=== PATIENT | female | born 1990 | race Caucasian/White ===

== ENCOUNTER 2024-07-07 17:41 | Emergency (ER) | payer OTHER, MEDICAID, SELFPAY ==
[2024-07-07 18:07] VITALS: BP 129/77; PULSE 74; RESP 18; TEMP 36.1; O2SAT 100
--- NOTE | 2024-07-07 19:15 | PC.NURSE ---
This RN to bedside to assist with IV attempt. Day RN reports pt has previous sticks and may need Ultra Sound IV. This RN able to obtain a 22g sliv in top of left hand without ultrasound. Unable to collect blood. [place] notified.
[2024-07-07 19:44] LABS: Basophils Percent Auto 0.2 % (0.2-1.2); Hematocrit 41.7 % (37.0-47.0); Hemoglobin 13.9 g/dL (12.0-15.0); Immature Granulocyte Absolute 0.06 K/mm3 (0.00-0.031); Immature Granulocyte Percent A 0.5 % (0-0.5); Lymphocytes Absolute Auto 0.54 K/mm3 (0.9-3.2); Lymphocytes Percent Auto 4.3 % (18.3-44.2); Mean Corpuscular HGB Conc 33.3 g/dl (32-36); Mean Corpuscular Hemoglobin 30.8 pg (26-34); Mean Corpuscular Volume 92.5 fl (80-100); Mean Platelet Volume 9.6 fl (7.4-10.4); Monocytes Absolute Auto 0.2 K/mm3 (0.1-0.6); Monocytes Percent Auto 1.8 % (2.6-8.5); Neutrophils Absolute Auto 11.8 K/mm3 (1.3-6.7); Neutrophils Percent Auto 93.2 % (45.5-73.1); Platelet Count Result 326 k/mm3 (150-375); Red Blood Count 4.51 M/mm3 (4.2-5.4); Red Cell Distribution Width 12.7 % (11.5-14.5); White Blood Count 12.7 K/mm3 (4.5-10.0)
[2024-07-07] MEDS: LACTATED RINGERS 1,000 ML 999 ML IV CONT (19:45)
[2024-07-07] MEDS: METOCLOPRAMIDE HCL INJ 10 MG/2 ML VIAL IV PUSH (19:45)
[2024-07-07] MEDS: diphenhydrAMINE HCl INJ 50 MG/ML VIAL IV PUSH (19:45)
[2024-07-07] MEDS: ONDANSETRON HCL ODT 4 MG TABLET PO (19:45)
[2024-07-07] MEDS: SODIUM CHLORIDE 0.9% IV 200 ML 1000 ML (19:46)
[2024-07-07 19:53] LABS: Alanine Aminotransferase 25 U/L (6-35); Albumin Level 5.2 g/dL (3.5-5.1); Alkaline Phosphatase 53 U/L (38-126); Anion Gap 17 mmol/L (4-12); Aspartate Amino Transferase 37 U/L (14-36); Bilirubin,Total 0.7 mg/dL (0.2-1.3); Blood Urea Nitrogen 16 mg/dL (7-17); Carbon Dioxide 20 mmol/L (22-30); Chloride 104 mmol/L (98-107); Estimated CRCL calculation 73 ml/min; Estimated Glomerular Filt Rate > 60; Glucose 146 mg/dL (65-110); Lipase 31 U/L (23-300); Sodium 141 mmol/L (137-145)
--- OUTSIDE RECORDS SUMMARY | 2024-07-07 20:56 | XMS_ITS | Patient Health Record ---
Author Organization [facility] Syste SRINIVAS haque Address [address] [place] [phone] Support Name Relationship Address Phone TONE MACHADO Guarantor Unknown [phone] Allergies No Known Allergies Reason For Referral No Information Medications Medication SIG (Take, Route, Frequency, Duration) Notes Start Date End Date Status Atomoxetine HCl 40 MG 1 capsule in the m orning for 7 days, continue with 2 capsules Orally Once a day for 30 day(s) 07/14/2021 Not-Taking hydrOXYzine HCl 25 MG 1 tablet as needed Orally Once a day for 30 day(s) 07/28/2021 Active ALPRAZolam 0.25 MG 1 tablet Orally PRN for anxiety for 30 days 08/11/2021 Active Social History Tobacco Use: Social History Observation Description Date Details (start date - stop date) Former Smoker NA - NA TOBACCO USE/SMOKING: Question Answer Notes Patient is a: former smoker Alcohol Question Answer Notes Did you have a drink containing alcohol in the p ast year? No Interpretation Negative Problems Problem Type SNOMED Code ICD Code Onset Dates Problem Status W/U Status Risk Notes Problem Attention deficit hyperactivity disorder (014968897) Attention-deficit hyperactivity disorder, unspecified type (F90.9) Active confirmed Problem Anxiety disorder (279295144) Anxiety disorder, unspecified (F41.9) Active confirmed Plan Of Treatment Pending Test Test Name Order Date T4 and TSH 07/14/2021 CBC 07/14/2021 LIPID PANEL 07/14/2021 URINALYSIS 07/14/2021 (DO NOT USE) Drug Monitoring Panel 1- Qu est 08/11/2021 Electrocardiogram (EKG) 07/14/2021 Drug Profile, Ur, 9 [facility]- [facility] Test Code [id number] 07/14/2021 [id number] 07/14/2021 Insurance Providers Payer Name Payer Address Payer Phone Subscriber Number Group Number Insured Name Patient Relationship to Insured Coverage Start Date Coverage End Date [employer] [address] [place] [phone] [id number] TONE MACHADO Self - patient is the insured 1 [employer] [address] [place] [phone] [id number] TONE MACHADO Self - patient is the insured Medical (General) History Surgical History Surgery Date(Month/Year) Hospitalization History Reason Date(Month/Year) 2018 / complications 2020
--- OUTSIDE RECORDS SUMMARY | 2024-07-07 20:56 | XMS_ITS | Patient Health Record ---
Author Organization [facility] Billing Info Address [address] [place], [place] [id number] Care Team Providers Care Plating Machine Operator Name Role Phone Nohemi Santiago Primary Care Provider Rosa Maria ma LOUDAVIDH Unavailable [phone] Reason For Referral No Information Medications Medication SIG (Take, Route, Fr equency, Duration) Notes Start Date End Date Status Diclegis 10-10 MG 2 tablets at bedtime on an empty stomach Orally Once a day for 30 day(s) 11/13/2017 Active Social History Tobacco Use: Social History Observation Description Date Details (start date - stop date) Never Smoker NA - NA Tobacco Status: Question Answer Notes Patient is a never smoker Plan Of Treatment Future Test Test Name Order Date US-TRANSVAGINAL, NON-OBSTETRIC ([id number]) I H 11/13/2017 Insurance Providers Payer Name Payer Address Payer Phone Subscriber Number Group Number Insured Name Patient Relationship to Insured Coverage Start Date Coverage End Date [facility] [address] [place], [place] [id number] Gertrude Jamesily Self - patient is the insured 7 8 Medical (General) History Surgical History Surgery Date(Month/Year)
[2024-07-07 21:49] LABS: BEDSIDEPREGUCG Negative (Negative)
[2024-07-07 21:55] LABS: Add Urine Microscopic? YES; Appearance Urine Cloudy (Clear); Bacteria Urine None Seen /hpf; Bilirubin Urine Negative (Negative); Blood Urine 2+ (Negative); Color Urine Yellow (Yellow); Glucose Urine UA Negative (Negative); Ketones Urine 4+ mg/dL (Negative); Leukocyte Esterase Ur Negative LEU/UL (Negative); Nitrate Urine Negative (Negative); Non Pathogenic Casts 0-2; Protein Urine 1+ mg/dL (Negative); Squamous Epithelial Cell Urine Occasional /hpf (Few); Urobilinogen Urine 0.2 mg/dL (<2.0); WBC Urine 0-5 /hpf (0-3); pH Urine 5.5 (5.0-9.0)
[2024-07-07 22:48] VITALS: BP 138/84; PULSE 102; RESP 15; O2SAT 99
--- NOTE | 2024-07-08 00:14 | ED_ITS ---
HPI - Nausea/Vomiting/Diarrhea General Chief complaint: Nausea/Vomiting/Diarrhea Stated complaint: n/v Time Seen by Provider: 07/07/24 18:57 History of Present Illness HPI Narrative: Patient presenting here with nausea and vomiting, this happens occasionally and when it does, Benadryl works quite well for her. Requesting IV Benadryl; no significant abdominal pain, just some cramping when she throws up. Related Data Allergies Allergy/AdvReac Type Severity Reaction Status Date / Time No Known Allergies Allergy Verified 07/07/24 17:44 Review of Systems 2 Review of Systems: All systems reviewed & are unremarkable except as noted in HPI and below Exam 2 Narrative: EXAMINATION OF ORGAN SYSTEMS/BODY AREAS: Constitutional: Vital signs per nursing GENERAL: Appears slightly uncomfortable, holding emesis bag HEAD: Normal with no signs of head trauma. EYES: EOMI, conjunctiva normal ENT: Hearing grossly intact LUNGS: Nonlabored breathing. HEART: [Regular rate and rhythm] ABD: [Soft], [nontender to palpation] EXT: Normal range of motion SKIN: [No rashes or lesions.] NEURO: [Alert and oriented x 3. No gross focal sensory or strength deficits.] PSYCH: Normal affect Course Vital Signs Vital signs: Vital Signs Temperature 96.9 F L 07/07/24 18:07 Pulse Rate 74 07/07/24 18:07 Respiratory Rate 18 07/07/24 18:07 Blood Pressure 129/77 07/07/24 18:07 Pulse Oximetry 100 07/07/24 18:07 Temperature 96.9 F L 07/07/24 18:07 Pulse Rate 102 H 07/07/24 22:48 Respiratory Rate 15 07/07/24 22:48 Blood Pressure 138/84 07/07/24 22:48 Pulse Oximetry 99 07/07/24 22:48 MDM - Nausea/Vomiting/Diarrhea MDM Narrative Medical decision making narrative: Patient presents here with nausea vomiting, no significant abdominal pain. On exam he she appears slightly uncomfortable, holding emesis bag, abdomen soft nontender. Labs do seem consistent with dehydration with ketones in urine. IV fluids given and antiemetics, and on re-evaluation, patient feels much better. No new emesis, no new abdominal pain tenderness. Agreeable to outpatient management with return precautions. I did prescribe prescriptions for symptomatic management Lab Data 07/07/24 19:37 07/07/24 19:37 Labs: Lab Results 07/07/24 07/07/24 07/07/24 Range/Units 19:37 21:25 21:49 WBC 12.7 H (4.5-10.0) K/mm3 RBC 4.51 (4.2-5.4) M/mm3 Hgb 13.9 (12.0-15.0) g/dL Hct 41.7 (37.0-47.0) % MCV 92.5 (80-100) fl MCH 30.8 (26-34) pg MCHC 33.3 (32-36) g/dl RDW 12.7 (11.5-14.5) % Plt Count 326 (150-375) k/mm3 MPV 9.6 (7.4-10.4) fl Immature Gran % (Auto) 0.5 (0-0.5) % Neut % (Auto) 93.2 H (45.5-73.1) % Lymph % (Auto) 4.3 L (18.3-44.2) % [place] % (Auto) 1.8 L (2.6-8.5) % Eos % (Auto) 0.0 (0-4.4) % Baso % (Auto) 0.2 (0.2-1.2) % Lymph # (Auto) 0.54 L (0.9-3.2) K/mm3 [place] # (Auto) 0.2 (0.1-0.6) K/mm3 Eos # (Auto) 0.0 (0-0.3) K/mm3 Baso # (Auto) 0.0 (0.0-0.1) K/mm3 Abs Immat Gran (auto) 0.06 H (0.00-0.031) K/mm3 Absolute Neuts (auto) 11.8 H (1.3-6.7) K/mm3 Absolute Nucleated RBC 0.000 (0.0-0.012) K/mm3 Nucleated RBC % 0.0 (0.0-0.2) % Sodium 141 (137-145) mmol/L Potassium 4.0 (3.4-5.0) mmol/L Chloride 104 (98-107) mmol/L Carbon Dioxide 20 L (22-30) mmol/L Anion Gap 17 H (4-12) mmol/L BUN 16 (7-17) mg/dL Creatinine 0.87 (0.7-1.0) mg/dL Estim Creat Clear Calc 73 ml/min Estimated GFR > 60 (59 - ) Glucose 146 H (65-110) mg/dL Calcium 9.0 (8.4-10.2) mg/dL Total Bilirubin 0.7 (0.2-1.3) mg/dL AST 37 H (14-36) U/L ALT 25 (6-35) U/L Alkaline Phosphatase 53 (38-126) U/L Total Protein 9.0 H (6.3-8.2) g/dL Albumin 5.2 H (3.5-5.1) g/dL Lipase 31 (23-300) U/L Urine Color Yellow (Yellow) Urine Appearance Cloudy H (Clear) Urine pH 5.5 (5.0-9.0) Ur Specific [place] 1.030 (1.001-1.035) Urine Protein 1+ H (Negative) mg/dL Urine Glucose (UA) Negative (Negative) mg/dL Urine Ketones 4+ H (Negative) mg/dL Ur Blood (Man) 2+ H (Negative) Urine Nitrate Negative (Negative) Urine Bilirubin Negative (Negative) Urine Urobilinogen 0.2 (<2.0) mg/dL Leukocyte Esterase Rfl Negative (Negative) VADIM/UL Urine RBC 6-10 H (0-2) /hpf Urine WBC 0-5 (0-3) /hpf Ur Squamous Epith Cells Occasional (Few) /hpf Urine Bacteria None seen /hpf Urine Casts 0-2 POC Urine HCG, Qual Negative (Negative) Discharge Plan Discharge Clinical Impression: Nausea and vomiting Patient Disposition: Home Condition: Stable Instructions: Acute Nausea and Vomiting (ED) Additional Instructions: Please follow up with your doctor; you can always return for any further issues. Patient Language: Macedonian Prescriptions: New famotidine 20 mg tablet 20 mg PO DAILY Qty: 30 0RF ondansetron 4 mg tablet,disintegrating 4 mg PO Q8H PRN (Reason: nausea and vomiting) Qty: 10 0RF Follow-up/Referrals: PHYSICIAN,LINE HAUL OWNER OPERATOR [Primary Care Provider] -
== END 2024-07-07 22:49 | disposition home or self-care (01) ==
PROVIDERS: Emergency Provider Emergency Medicine
DX: R11.2 Nausea with vomiting, unspecified (principal)
CPT/HCPCS: 36415; 80053; 81001; 81025; 83690; 85025; 96361; 96374; 96375; 99284; A9270; J1200; J2765; J7120